=== PATIENT | female | born 2000 | race Two or more races ===

== ENCOUNTER 2022-03-03 22:24 | Emergency (ER) | payer OTHER ==
[~2022-03-03] VITALS: Ht 170.2 cm; Wt 111.1 kg
[2022-03-03] MEDS ORDERED: [UNRECOGNIZED DRUG - OTHER] (22:59)
[2022-03-04] MEDS ORDERED: METRONIDAZOLE500 MG PO (03:51)
[2022-03-04] MEDS ORDERED: LEVSIN/SL0.125 MG SL (03:51)
[2022-03-04] MEDS ORDERED: PRILOSEC OTC20 MG PO (03:51)
== END 2022-03-04 05:18 | disposition home or self-care (01) ==
LOC: EMR PED 22:24 → ER 22:49
DX: K52.9 Noninfective gastroenteritis and colitis, unspecified (principal); R10.31 Right lower quadrant pain; N93.9 Abnormal uterine and vaginal bleeding, unspecified; N83.202 Unspecified ovarian cyst, left side